=== PATIENT | female | born 1970 | race Caucasian/White ===

== ENCOUNTER 2020-07-14 15:08 | Emergency (ER) | payer MEDICAID ==
[~2020-07-14] VITALS: Ht 149.9 cm; Wt 82.6 kg
[2020-07-14 15:16] VITALS: BP 129/80
[2020-07-14] MEDS ORDERED: LACTATED RINGERS 1,000 ML IV ONE ×2 (15:50→16:50)
[2020-07-14 15:58] LABS: BASOPHILS # (AUTO) 0.1 K/uL (0.00-0.22); BASOPHILS % (AUTO) 2.5 % (0.0-2.0); EOSINOPHILS # (AUTO) 0.4 K/uL (0-0.4); EOSINOPHILS % (AUTO) 6.9 % (0.0-4.0); HEMATOCRIT 41.7 % (36-48); HEMOGLOBIN 14.5 g/dL (12.0-16.0); LYMPHOCYTES # (AUTO) 2.4 K/uL (2.5-16.5); LYMPHOCYTES % (AUTO) 44.4 % (20.5-51.1); MEAN CORPUSCULAR HEMOGLOBIN 30 pg (27-31); MEAN CORPUSCULAR HGB CONC 35 g/dL (33-37); MEAN CORPUSCULAR VOLUME 87.2 fL (80-94); MONOCYTES # (AUTO) 0.2 K/uL (0.8-1.0); MONOCYTES % (AUTO) 4.4 % (1.7-9.3); NEUTROPHILS # (AUTO) 2.2 K/uL (1.8-7.7); NEUTROPHILS % (AUTO) 41.8 % (42.2-75.2); PLATELET COUNT (AUTO) 225 K/uL (140-450); RED BLOOD CELL COUNT(AUTO) 4.79 MIL/uL (4.20-5.40); RED CELL DISTRIBUTION WIDTH 13.1 % (11.6-13.7); WHITE BLOOD COUNT (AUTO) 5.4 K/uL (4.8-10.8)
[2020-07-14 16:04] LABS: APPEARANCE,URINE CLEAR (CLEAR); BILIRUBIN,URINE NEGATIVE (NEGATIVE); BLOOD, URINE NEGATIVE (NEGATIVE); COLOR,URINE YELLOW (YELLOW); LEUKOCYTE ESTERASE ,URINE NEGATIVE (NEGATIVE); NITRITE, URINE NEGATIVE (NEGATIVE); UGLUCOSE 3+ (NEGATIVE)
[2020-07-14 16:05] LABS: ANION GAP 13.5 (8-16); CARBON DIOXIDE 24.4 mmol/L (21-32); CREATININE 0.6 mg/dL (0.6-1.3); POTASSIUM 3.9 mmol/L (3.5-5.1)
[2020-07-14 16:11] LABS: ALBUMIN 3.6 g/dL (3.4-5.0); TOTAL BILIRUBIN 0.4 mg/dL (0.0-1.0)
--- NOTE | 2020-07-14 16:50 | NUR ---
PELVIC EXAM BY DR JEFFREY, SPEC TO LAB, TOLERATED WELL.
[2020-07-14] MEDS ORDERED: FLUC150T PO (18:03)
[2020-07-14] MEDS ORDERED: METF-988 PO (18:03)
[2020-07-14] MEDS ORDERED: FLUCONAZOLE 100 MG TAB PO ONE (18:05)
[2020-07-14] MEDS ORDERED: BLOO1EAC40 MC (18:10)
[2020-07-14] MEDS ORDERED: LANC-886 TP (18:10)
[2020-07-14 18:24] VITALS: BP 120/85
--- NOTE | 2020-07-14 18:24 | NUR ---
Patient discharged with v/s stable. Written and verbal after care instructions given and explained in french, translated by myself. Patient alert, oriented and verbalized understanding of instructions. Ambulatory with steady gait. All questions addressed prior to discharge. ID band removed. Patient advised to follow up with PMD. Rx of Diflucan, Metformin sent to pharmacy of pt's choice. Patient educated on indication of medication including possible reaction and side effects. Opportunity to ask questions provided and answered.
== END 2020-07-14 15:20 | disposition home or self-care (01) ==
LOC: MED 15:08
DX: E11.10 Type 2 diabetes mellitus with ketoacidosis without coma (principal); B37.3 Candidiasis of vulva and vagina; R74.01 Elevation of levels of liver transaminase levels; Z79.899 Other long term (current) drug therapy
CPT/HCPCS: 36415; 80053; 81003; 85025; 87086; 87210; 87491; 96360; 99284; J7120

== ENCOUNTER 2020-12-02 00:14 | Emergency (ER) | payer SELFPAY ==
[~2020-12-02] VITALS: Ht 152.4 cm; Wt 63.5 kg
[~2020-12-02 00:14] MED LIST: BLOO1EAC40 MC; FLUC150T PO; LANC-886 TP; METF-988 PO
[2020-12-02 00:20] VITALS: BP 132/74
--- NOTE | 2020-12-02 00:23 | NUR ---
TO LOBBY A/W BED AMBULATORY
--- NOTE | 2020-12-02 04:40 | NUR ---
SEEN AND EXAMINED BY EDDA
[2020-12-02] MEDS ORDERED: LIDOCAINE/EPI 1% 1:100000 20 ML VIAL INJ ONE (04:52)
--- NOTE | 2020-12-02 05:04 | NUR ---
I&D Procedure done by Dr ABEL. MODERATE amt of bleeding noted. Wound packed with iodoform gauze. DSD applied. Pt tolerated the procedure well. Wound care discussed w/ patient.
[2020-12-02] MEDS ORDERED: cephALEXin 500 MG CAP PO ONE (05:25)
[2020-12-02] MEDS ORDERED: SULFAMETH/TRIMETH DS 800/160MG 1 TAB PO ONE (05:25)
[2020-12-02] MEDS ORDERED: ACET-9882 PO (05:34)
[2020-12-02] MEDS ORDERED: CLIN300C52 PO (05:34)
[2020-12-02] MEDS ORDERED: CLINDAMYCIN 150 MG CAP PO ONE (05:35)
[2020-12-02 06:05] VITALS: BP 121/78
--- NOTE | 2020-12-02 06:05 | NUR ---
Patient discharged with v/s stable. Written and verbal after care instructions given and explained. Patient alert, oriented and verbalized understanding of instructions. Ambulatory with steady gait. All questions addressed prior to discharge. ID band removed. Patient advised to follow up with PMD. Rx of CLINDAMYCIN given. Patient educated on indication of medication including possible reaction and side effects. Opportunity to ask questions provided and answered.
== END 2020-12-02 06:05 | disposition home or self-care (01) ==
LOC: MED 00:14
DX: L02.211 Cutaneous abscess of abdominal wall (principal); Z79.899 Other long term (current) drug therapy
CPT/HCPCS: 10060; 99284; J2001

== ENCOUNTER 2021-04-11 19:54 | Emergency (ER) | payer MEDICAID ==
[~2021-04-11] VITALS: Ht 149.9 cm; Wt 82.6 kg
[~2021-04-11 19:54] MED LIST changes: +ACET-9882 PO; +CLIN300C52 PO; +METF-1243 PO; -METF-988 PO
[2021-04-11 20:03] VITALS: BP 159/99
[2021-04-11] MEDS ORDERED: NACL 0.9% 1,000 ML IV ONE (20:25)
--- NOTE | 2021-04-11 20:56 | NUR ---
PT AMBULATED TO BED 11.
[2021-04-11 21:00] LABS: BASOPHILS # (AUTO) 0.1 K/uL (0.00-0.22); BASOPHILS % (AUTO) 1.2 % (0.0-2.0); EOSINOPHILS # (AUTO) 0.3 K/uL (0-0.4); EOSINOPHILS % (AUTO) 5.6 % (0.0-4.0); HEMATOCRIT 41.3 % (36-48); HEMOGLOBIN 14.2 g/dL (12.0-16.0); LYMPHOCYTES # (AUTO) 2.5 K/uL (2.5-16.5); LYMPHOCYTES % (AUTO) 44.2 % (20.5-51.1); MEAN CORPUSCULAR HEMOGLOBIN 30 pg (27-31); MEAN CORPUSCULAR HGB CONC 35 g/dL (33-37); MEAN CORPUSCULAR VOLUME 85.8 fL (80-94); MONOCYTES # (AUTO) 0.2 K/uL (0.8-1.0); MONOCYTES % (AUTO) 4.1 % (1.7-9.3); NEUTROPHILS # (AUTO) 2.5 K/uL (1.8-7.7); NEUTROPHILS % (AUTO) 44.9 % (42.2-75.2); PLATELET COUNT (AUTO) 255 K/uL (140-450); RED BLOOD CELL COUNT(AUTO) 4.81 MIL/uL (4.20-5.40); RED CELL DISTRIBUTION WIDTH 12.9 % (11.6-13.7); WHITE BLOOD COUNT (AUTO) 5.6 K/uL (4.8-10.8)
--- NOTE | 2021-04-11 21:15 | NUR ---
PT LYING IN BED WITH EYES OPEN. ALERT AND ORIENTED X4. APPEARS TO BE ANXIOUS. EQUAL RISE AND FALL OF CHEST. NO ACUTE DISTRESS AT THIS TIME. CHARGE NURSE AND RN AT BEDSIDE INSERTING IV AND HANGING IV FLUIDS PER MD ORDERS.
[2021-04-11 21:17] LABS: ALBUMIN 3.6 g/dL (3.4-5.0); ANION GAP 11.4 (8-16); CARBON DIOXIDE 29.7 mmol/L (21-32); CREATININE 0.7 mg/dL (0.6-1.3); POTASSIUM 4.1 mmol/L (3.5-5.1); TOTAL BILIRUBIN 0.3 mg/dL (0.0-1.0)
[2021-04-11] MEDS ORDERED: NAPR-54 PO (21:43)
[2021-04-11] MEDS ORDERED: CHLOR MM (22:00)
--- NOTE | 2021-04-11 22:00 | NUR ---
RN TO DC PT. PT BS 181. NOTIFIED. STATES TO CONTINUE WITH DISHCARGE PROCESS. RN PROVIDED EDUCATION TO PT ABOUT HYPERGLYCEMIA PER DC ORDERS.
[2021-04-11 22:13] VITALS: BP 125/65
== END 2021-04-11 22:13 | disposition home or self-care (01) ==
LOC: MED 19:54
DX: E11.65 Type 2 diabetes mellitus with hyperglycemia (principal); Z79.899 Other long term (current) drug therapy
CPT/HCPCS: 36415; 80053; 82803; 83690; 85025; 96360; 99283; J7030